=== PATIENT | male | born 2005 | race Caucasian/White ===

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

== ENCOUNTER → 2023-01-24 | Outpatient (CLI) | payer BC | END | disposition home or self-care (01) | LOC: LABWHC1 11:52 | PROVIDERS: ATTEND Neurological Surgery | DX: D43.2 Neoplasm of uncertain behavior of brain, unspecified (principal); E89.3 Postprocedural hypopituitarism | CPT/HCPCS: 36415; 84295 ==